=== PATIENT | female | born 1955 | race Caucasian/White ===

== ENCOUNTER 2020-03-20 00:10 | Inpatient (IN) | payer MEDICAID, MEDICARE ==
[~2020-03-20] VITALS: Ht 152.4 cm; Wt 49.0 kg
[2020-03-20] MEDS ORDERED: FAMOTIDINE 20MG/2ML VIAL IV ONE (00:45)
[2020-03-20] MEDS ORDERED: SODIUM CHLORIDE 0.9% 1,000 ML IV ONE (00:45)
[2020-03-20] MEDS ORDERED: MAGNESIUM/ALUMINUM HYDROXIDE/SIMETHICONE 30ML UDC PO ONE (01:15)
[2020-03-20] MEDS ORDERED: MORPHINE SULFATE 2 MG/ML CPJ (NOT FOR IM USE) IV ONE (01:15)
[2020-03-20 01:30] LABS: BASOPHILS % 0.2 % (0.0-2.0); EOSINOPHILS % 0.2 % (0.0-5.0); HEMATOCRIT. 42.3 % (36.0-48.0); HEMOGLOBIN. 14.2 g/dL (12.0-16.0); LYMPHOCYTES % 8.9 % (20.0-50.0); MEAN CORPUSCULAR HEMOGLOBIN 31.7 pg (28.0-32.0); MEAN CORPUSCULAR VOLUME 94.5 fL (81.0-99.0); MEAN PLATELET VOLUME 7.8 fl (7.4-10.4); MONOCYTES % 4.1 % (2.0-8.0); NEUTROPHILS % 86.6 % (40.0-76.0); PLATELET 328 x1000/uL (130-400); RED BLOOD CELL COUNT 4.47 mill/uL (4.2-5.4); RED CELL DISTRIBUTION WIDTH 13.6 % (11.6-14.6)
[2020-03-20 01:32] LABS: CHLORIDE 109 mEq/L (98-107)
[2020-03-20 01:35] LABS: PROTHROMBIN TIME 10.3 sec (9.6-11.0)
[2020-03-20] MEDS ORDERED: CEFTRIAXONE 1 G PREMIX 50 ML IV SCH (01:45)
[2020-03-20] MEDS ORDERED: METRONIDAZOLE 500 MG PREMIX 100 ML IV SCH (01:45)
[2020-03-20 02:41] LABS: CLARITY URINE CLEAR (CLEAR); COLOR URINE YELLOW (YELLOW); KETONES URINE 1+ (NEGATIVE); LEUKOCYTE ESTERASE URINE TRACE (NEGATIVE); NITRITE URINE NEGATIVE (NEGATIVE); OCCULT BLOOD URINE NEGATIVE (NEGATIVE); PROTEIN URINE NEGATIVE (NEGATIVE); SPECIFIC GRAVITY URINE 1.017 (1.005-1.030); UROBILINOGEN URINE 0.2 E.U./dL (0.2-1.0)
[2020-03-20 20:00] VITALS: BP 114/62
[2020-03-20 20:50] VITALS: BP 107/57
[2020-03-21] VITALS: BP 107/57
[2020-03-21] MEDS ORDERED: MORPHINE SULFATE 2 MG/ML CPJ (NOT FOR IM USE) IV PRN
[2020-03-21] MEDS ORDERED: FLUT15.844 BOTHNSTRLS (01:10)
[2020-03-21] MEDS ORDERED: SYSOS EACHEYE (01:10)
[2020-03-21] MEDS: LEVOFLOXACIN 500MG PREMIX 100 ML IV SCH (01:54)
[2020-03-21 04:00] VITALS: BP 104/60
[2020-03-21 05:33] LABS: BASOPHILS % 0.4 % (0.0-2.0); HEMATOCRIT. 35.8 % (36.0-48.0); HEMOGLOBIN. 12.4 g/dL (12.0-16.0); LYMPHOCYTES % 44.4 % (20.0-50.0); MEAN CORPUSCULAR HEMOGLOBIN 32.3 pg (28.0-32.0); MEAN CORPUSCULAR VOLUME 93.3 fL (81.0-99.0); MEAN PLATELET VOLUME 7.7 fl (7.4-10.4); MONOCYTES % 9.2 % (2.0-8.0); PLATELET 310 x1000/uL (130-400); RED BLOOD CELL COUNT 3.84 mill/uL (4.2-5.4); RED CELL DISTRIBUTION WIDTH 13.4 % (11.6-14.6)
[2020-03-21 05:51] LABS: CHLORIDE 111 mEq/L (98-107)
[2020-03-21] MEDS: OMEPRAZOLE 20MG CAPSULE EXTENDED RELEASE PO SCH (06:23)
[2020-03-21 08:00] VITALS: BP 124/63
[2020-03-21] MEDS ORDERED: POLYVINYL ALCOHOL OPHTH DROPS 15ML EACHEYE SCH (09:00)
[2020-03-21] MEDS ORDERED: MEDICATION NOT ON FORMULARY EA (Fluticasone Propionate 2 SPR) BOTHNSTRLS SCH (09:00)
[2020-03-21] MEDS ORDERED: METRONIDAZOLE 50MG/ML 1ML ORAL SYR(NEO) PO SCH (09:00)
[2020-03-21] MEDS: METRONIDAZOLE 500MG TABLET PO SCH ×3 (09:57→16:55)
[2020-03-21] MEDS: PROPYLENE GLYCOL/PEG 400 OPTH DROPS BOTHEYE SCH ×4 (09:58→21:39)
[2020-03-21] MEDS: FLUTICASONE PROPIONATE 50MCG/SPRAY BOTTLE BOTHNSTRLS SCH (09:58)
[2020-03-21 12:00] VITALS: BP 105/65
[2020-03-21 16:00] VITALS: BP 108/62
[2020-03-21] MEDS ORDERED: VANCOMYCIN HCL 1 GM/VIAL ONE (19:00)
[2020-03-21] MEDS ORDERED: BACITRACIN 50,000 UNITS/VIAL ONE ×2 (19:00→19:06)
[2020-03-21] MEDS ORDERED: LIDOCAINE HCL/EPINEPHRINE 1%-EPI 1:100,000 20 ML VIAL ONE (19:00)
[2020-03-21 20:00] VITALS: BP 109/60
[2020-03-21] MEDS: ONDANSETRON HCL 4MG/2ML INJ IV PRN (22:25)
[2020-03-21] MEDS: DOCUSATE SODIUM 250MG CAPSULE PO SCH (22:25)
[2020-03-22] VITALS: BP 105/65
[2020-03-22] MEDS: LEVOFLOXACIN 500MG PREMIX 100 ML IV SCH (01:35)
[2020-03-22 04:00] VITALS: BP 111/58
[2020-03-22] MEDS: ONDANSETRON HCL 4MG/2ML INJ IV PRN (04:36)
[2020-03-22] MEDS: OMEPRAZOLE 20MG CAPSULE EXTENDED RELEASE PO SCH (06:25)
[2020-03-22 08:00] VITALS: BP 143/68
[2020-03-22] MEDS: METRONIDAZOLE 500MG TABLET PO SCH (09:08)
[2020-03-22] MEDS: DOCUSATE SODIUM 250MG CAPSULE PO SCH (09:08)
[2020-03-22] MEDS: FLUTICASONE PROPIONATE 50MCG/SPRAY BOTTLE BOTHNSTRLS SCH (09:09)
[2020-03-22] MEDS: PROPYLENE GLYCOL/PEG 400 OPTH DROPS BOTHEYE SCH (09:09)
[2020-03-22 12:00] VITALS: BP 122/74
[2020-03-22] MEDS ORDERED: *PATIENT'S OWN MEDICATION STORAGE XX SCH (15:45)
== END 2020-03-22 16:02 | disposition home or self-care (01) | DRG 720 ==
LOC: ER 00:10 → EDBEDREQSVC 02:53 → EDBEDREQTM 02:53 → EDBEDREQ 02:53 → 6EST 18:12 → ENRESERV 19:59 → ER 21:00
PROVIDERS: ADMIT Internal Medicine; ATTEND Internal Medicine
DX: A41.9 Sepsis, unspecified organism (principal); E87.8 Other disorders of electrolyte and fluid balance, not elsewhere classified; E78.5 Hyperlipidemia, unspecified; E78.00 Pure hypercholesterolemia, unspecified; I10 Essential (primary) hypertension; K52.9 Noninfective gastroenteritis and colitis, unspecified; Z82.49 Family history of ischemic heart disease and other diseases of the circulatory system; Z79.899 Other long term (current) drug therapy; Z87.19 Personal history of other diseases of the digestive system
CPT/HCPCS: 36415; 71045; 74176; 80048; 80053; 81003; 83605; 84145; 84484; 85025; 93005; 96374; 99285; J0696; J1956; J2270; J2405; J3370; J3490; J7030; J7040